=== PATIENT | male | born 1995 | race Caucasian/White ===

== ENCOUNTER 2018-01-17 17:54 | Emergency (ER) | payer OTHER ==
--- NOTE | 2018-01-17 18:12 | ER Report ---
History and Physical Time Seen By MD: 18:12 Hx. of Stated Complaint: PATIENT HAS BEEN HAVING ABDOMINAL PAIN TODAY SINCE TAKING AN IMMODIUM HPI/ROS CHIEF COMPLAINT: Abdominal pain HISTORY OF PRESENT ILLNESS: 22-year-old male patient presents to emergency room with complaint of abdominal pain. Patient states that he has been having diarrhea all week. He states that he has been taking Imodium. He states that this morning he took 2 Imodium. States that the pain started approximately noon and has continued to worsen throughout the day. Patient states that the pain is worse now. He states that it's an 8.6 out of 10. Patient states he's had some nausea and vomiting. He states that is worse after drinking. He states he's not been able to eat at all today. Patient states pain has seemed to be throughout his abdomen. States it does not stay in one location. He denies having any previous abdominal surgery. REVIEW OF SYSTEMS: Respiratory: No cough, no dyspnea. Cardiovascular: No chest pain, no palpitations. Gastrointestinal: As noted above Musculoskeletal: No back pain. Allergies: Coded Allergies: No Known Drug Allergies (Unverified , 01/17/18) Home Meds Active Scripts Hydrocodone Bit/Acetaminophen (HYDROCODON-ACETAMINOPHEN 5-325) 1 Each Tablet, 1 EACH PO Q4-6H Y for PAIN, #12 TAB Prov:DEANA RAMIREZ 01/17/18 Past Medical/Surgical History Patient has a past medical history of polycystic kidney disease. Patient denies any surgical history. Reviewed Nurses Notes: Yes Constitutional Vital Sign - Last 24 Hours 01/17/18 01/17/18 01/17/18 01/17/18 18:03 18:45 18:53 19:00 Temp 97.8 Pulse 75 88 Resp 20 B/P (MAP) 146/98 155/89 (111) 142/96 (111) Pulse Ox 96 98 93 O2 Delivery Room Air 01/17/18 01/17/18 01/17/18 01/17/18 19:15 19:30 19:45 20:00 Pulse 87 72 91 B/P (MAP) 142/96 (111) 135/87 (103) Pulse Ox 95 94 92 94 01/17/18 01/17/18 01/17/18 01/17/18 20:15 20:30 20:45 21:00 Pulse 78 93 83 94 B/P (MAP) 136/87 (103) 152/91 (111) Pulse Ox 92 91 91 97 01/17/18 01/17/18 21:15 21:25 Pulse 80 B/P (MAP) 141/84 (103) Pulse Ox 93 Physical Exam General Appearance: The patient is alert, has no immediate need for airway protection and no current signs of toxicity. ENT: Tympanic membranes are pearly-baptiste, auditory canals are patent, mucous membranes are moist. Respiratory: Chest is non tender, lungs are clear to auscultation. Cardiac: regular rate and rhythm Gastrointestinal: Abdomen is soft and non tender, no masses, bowel sounds are hypoactive. Musculoskeletal: Neck: Neck is supple and non tender. Extremities have full range of motion and are non tender. Skin: No rashes or lesions. DIFFERENTIAL DIAGNOSIS: After history and physical exam differential diagnosis was considered for abdominal pain including but not limited to appendicitis, cholecystitis, gastritis and urinary tract infection. Medical Decision Making Data Points Result Diagram: 01/17/18 1844 01/17/18 1844 Laboratory Hematology Test 01/17/18 18:00 01/17/18 18:44 Urine Color Yellow Urine Clarity Clear Urine pH 6.0 pH (4.8-9.5) Urine Specific Shunk 1.016 Urine Protein 30 mg/dL (NEGATIVE) Urine Glucose (UA) Negative mg/dL (NEGATIVE) Urine Ketones Negative mg/dL (NEGATIVE) Urine Blood Negative (NEGATIVE) Urine Nitrite Negative (NEGATIVE) Urine Bilirubin Negative (NEGATIVE) Urine Urobilinogen Negative mg/dL (0.2-1.9) Urine Leukocyte Esterase Negative (NEGATIVE) Urine RBC 1 /HPF (0-2/HPF) Urine WBC None /HPF (0-5/HPF) Urine Squamous Epithelial Cells None /LPF (</=FEW) Urine Bacteria Negative /HPF (NONE-FEW) Urine Mucus Few /HPF (NONE-FEW) Red Blood Count 5.91 M/uL (4.00-5.60) Mean Corpuscular Volume 85.5 fL (80.0-96.0) Mean Corpuscular Hemoglobin 30.9 pg (26.0-33.0) Mean Corpuscular Hemoglobin Concent 36.2 g/dL (32.0-36.0) Red Cell Distribution Width 13.0 % (11.5-14.5) Mean Platelet Volume 7.7 fL (7.2-11.1) Neutrophils (%) (Auto) 86.6 % (39.4-72.5) Lymphocytes (%) (Auto) 8.8 % (17.6-49.6) Monocytes (%) (Auto) 3.9 % (4.1-12.4) Eosinophils (%) (Auto) 0.5 % (0.4-6.7) Basophils (%) (Auto) 0.2 % (0.3-1.4) Nucleated RBC Relative Count (auto) 0.1 /100WBC Neutrophils # (Auto) 8.9 K/uL (2.0-7.4) Lymphocytes # (Auto) 0.9 K/uL (1.3-3.6) Monocytes # (Auto) 0.4 K/uL (0.3-1.0) Eosinophils # (Auto) 0.0 K/uL (0.0-0.5) Basophils # (Auto) 0.0 K/uL (0.0-0.1) Nucleated RBC Absolute Count (auto) 0.01 K/uL Sodium Level 137 mmol/L (137-145) Potassium Level 3.8 mmol/L (3.5-5.0) Chloride Level 97 mmol/L (98-107) Carbon Dioxide Level 26 mmol/L (22-30) Blood Urea Nitrogen 14 mg/dl (9-21) Creatinine 0.80 mg/dl (0.66-1.25) Glomerular Filtration Rate Calc > 60.0 Random Glucose 119 mg/dl (75-110) Calcium Level 9.6 mg/dl (8.4-10.2) Total Bilirubin 1.0 mg/dl (0.2-1.3) Aspartate Amino Transf (AST/SGOT) 31 U/L (0-35) Alanine Aminotransferase (ALT/SGPT) 26 U/L (0-56) Alkaline Phosphatase 66 U/L (0-126) C-Reactive Protein 0.5 mg/dl (<1.0) Total Protein 8.3 g/dl (6.3-8.2) Albumin 5.1 g/dl (3.5-5.0) Amylase Level 103 U/L (0-110) Lipase 25 U/L (23-300) Chemistry Test 01/17/18 18:00 01/17/18 18:44 Urine Color Yellow Urine Clarity Clear Urine pH 6.0 pH (4.8-9.5) Urine Specific Shunk 1.016 Urine Protein 30 mg/dL (NEGATIVE) Urine Glucose (UA) Negative mg/dL (NEGATIVE) Urine Ketones Negative mg/dL (NEGATIVE) Urine Blood Negative (NEGATIVE) Urine Nitrite Negative (NEGATIVE) Urine Bilirubin Negative (NEGATIVE) Urine Urobilinogen Negative mg/dL (0.2-1.9) Urine Leukocyte Esterase Negative (NEGATIVE) Urine RBC 1 /HPF (0-2/HPF) Urine WBC None /HPF (0-5/HPF) Urine Squamous Epithelial Cells None /LPF (</=FEW) Urine Bacteria Negative /HPF (NONE-FEW) Urine Mucus Few /HPF (NONE-FEW) White Blood Count 10.2 k/uL (4.5-11.0) Red Blood Count 5.91 M/uL (4.00-5.60) Hemoglobin 18.3 g/dL (14.0-18.0) Hematocrit 50.6 % (42.0-52.0) Mean Corpuscular Volume 85.5 fL (80.0-96.0) Mean Corpuscular Hemoglobin 30.9 pg (26.0-33.0) Mean Corpuscular Hemoglobin Concent 36.2 g/dL (32.0-36.0) Red Cell Distribution Width 13.0 % (11.5-14.5) Platelet Count 238 K/uL (150-450) Mean Platelet Volume 7.7 fL (7.2-11.1) Neutrophils (%) (Auto) 86.6 % (39.4-72.5) Lymphocytes (%) (Auto) 8.8 % (17.6-49.6) Monocytes (%) (Auto) 3.9 % (4.1-12.4) Eosinophils (%) (Auto) 0.5 % (0.4-6.7) Basophils (%) (Auto) 0.2 % (0.3-1.4) Nucleated RBC Relative Count (auto) 0.1 /100WBC Neutrophils # (Auto) 8.9 K/uL (2.0-7.4) Lymphocytes # (Auto) 0.9 K/uL (1.3-3.6) Monocytes # (Auto) 0.4 K/uL (0.3-1.0) Eosinophils # (Auto) 0.0 K/uL (0.0-0.5) Basophils # (Auto) 0.0 K/uL (0.0-0.1) Nucleated RBC Absolute Count (auto) 0.01 K/uL Glomerular Filtration Rate Calc > 60.0 Calcium Level 9.6 mg/dl (8.4-10.2) Total Bilirubin 1.0 mg/dl (0.2-1.3) Aspartate Amino Transf (AST/SGOT) 31 U/L (0-35) Alanine Aminotransferase (ALT/SGPT) 26 U/L (0-56) Alkaline Phosphatase 66 U/L (0-126) C-Reactive Protein 0.5 mg/dl (<1.0) Total Protein 8.3 g/dl (6.3-8.2) Albumin 5.1 g/dl (3.5-5.0) Amylase Level 103 U/L (0-110) Lipase 25 U/L (23-300) Urinalysis Test 01/17/18 18:00 Urine Color Yellow Urine Clarity Clear Urine pH 6.0 pH (4.8-9.5) Urine Specific Shunk 1.016 Urine Protein 30 mg/dL (NEGATIVE) Urine Glucose (UA) Negative mg/dL (NEGATIVE) Urine Ketones Negative mg/dL (NEGATIVE) Urine Blood Negative (NEGATIVE) Urine Nitrite Negative (NEGATIVE) Urine Bilirubin Negative (NEGATIVE) Urine Urobilinogen Negative mg/dL (0.2-1.9) Urine Leukocyte Esterase Negative (NEGATIVE) Urine RBC 1 /HPF (0-2/HPF) Urine WBC None /HPF (0-5/HPF) Urine Squamous Epithelial Cells None /LPF (</=FEW) Urine Bacteria Negative /HPF (NONE-FEW) Urine Mucus Few /HPF (NONE-FEW) EKG/Imaging Imaging COMPUTED TOMOGRAPHY ABDOMEN AND PELVIS WITH INTRAVENOUS CONTRAST DATE OF EXAM: 01/17/2018 6:25 PM INDICATION: Abdominal pain. COMPARISON: None. TECHNIQUE: Contrast enhanced abdomen and pelvis CT performed during the injection of 75 ml of Isovue 370. Sagittal and coronal reconstructions were performed. One of the following dose optimization techniques was utilized in the performance of this exam: Automated exposure control; adjustment of the mA and/or kV according to the patient's size; or use of an iterative reconstruction technique. Specific details can be referenced in the facility's radiology CT exam operational policy. FINDINGS: Lung bases: Probable 2 mm lymph node along the left major fissure H 12 series 2. No suspicious consolidation. Liver and hepatic vasculature: Normal. Gallbladder and bile ducts: Normal. Spleen: Normal. Pancreas: Normal. Adrenals: Normal. Kidneys, ureters and bladder: There are numerous bilateral renal cysts, the right kidney is mildly atrophic, and the left kidney appears enlarged. There is a very large cyst arising from the inferior pole of the right kidney measuring 15.9 x 9.1 greatest axial dimensions and extending 19.9 cm craniocaudal. It displaces adjacent bowel and partially compresses the inferior vena cava. The distal ureters appear dilated, though they do not appear inflamed and there is no well-demonstrated obstructing lesion. Urinary bladder is largely decompressed. Retroperitoneum and aorta: Normal caliber aorta. IVC is partially compressed by the large right renal cyst. GI tract, mesentery and peritoneum: Bowel is displaced by the large right renal cyst as above. No evidence of obstruction. Normal appendix. No pneumatosis, pneumoperitoneum or free fluid. Prostate and seminal vesicles: Normal. Bones and soft tissues: No acute abnormality or suspicious lesion. IMPRESSION: 1. Polycystic kidneys with very large right renal cyst displacing adjacent bowel as well as compressing the inferior vena cava. It measures 15.9 x 9.1 x 19.9 cm. 2. Nonspecific dilation of the distal portions of the ureters with no apparent obstructing lesion or acute inflammation. Correlate with urinalysis. This may be chronic, and could be further evaluated with nonemergent CT IVP if indicated. Consider urologic consultation. Report Dictated By: Gualberto Taveras MD at 01/17/2018 8:07 PM Report E-Signed By: Gualberto Taveras MD at 01/17/2018 8:19 PM ED Course/Re-evaluation ED Course Patient was admitted to an exam room, history and physical were obtained. Differential diagnoses were considered. On examination patient had no palpable tenderness to the abdomen, although he was guarding. Lungs are clear, heart was regular. A IV was started, CBC, CMP, urinalysis, CT scan of abdomen and pelvis was done. Labs were unremarkable. CRP was negative. CT scan of the abdomen and pelvis did show a large right kidney cyst. Which did cause displacement of the intestines as well as some compression of the inferior vena cava. After reviewing the images of believe that is likely the cause of his pain. Patient did receive morphine through the IV when he arrived here. He did have improvement in his pain. He says the pain is significantly improved. I did review the CT scans with the patient and his significant other. We will go ahead and discharge the patient home. Patient was given a we discussed increasing fluid intake, make sure is getting plenty of fiber in his diet. I recommended that he follow-up with urology here in [facility]. He states he preferred talk to his director information security back in [place]. I recommend that he call them on Friday and discuss the CT scans with him. I did give him the information for urologist here in [facility] so that he can follow-up with them if that his recognition of his director information security. I discussed this with the patient and significant other and they verbalized understanding and agreement with plan. Patient will be treated with a limited supply of pain medication to help with his discomfort. Decision to Disposition Date: Jan 17, 2018 Decision to Disposition Time: 21:18 Depart Departure Latest Vital Signs Vital Signs Date Time Temp Pulse Resp B/P (MAP) Pulse Ox O2 Delivery O2 Flow Rate FiO2 01/17/18 21:25 141/84 (103) 01/17/18 21:15 80 93 01/17/18 18:03 97.8 20 Room Air Impression: Primary Impression: Kidney cysts Condition: Improved Disposition: HOME OR SELF-CARE Referrals: HERLINDA PEREZ MD, LYLE MD New Scripts Hydrocodone Bit/Acetaminophen (HYDROCODON-ACETAMINOPHEN 5-325) 1 Each Tablet 1 EACH PO Q4-6H Y for PAIN, #12 TAB Prov: DEANA RAMIREZ 01/17/18 Patient Instructions: Kidney Cyst (ED) Additional Instructions: Limit activity by pain. Get plenty of rest. Follow up with your Stock Clerk, call on Friday to discuss the results of the CT scan. Increase fluid intake. Use pain medication as needed for severe pain. Return to the ER if condition worsens. Follow up with Urologist, if okay with your Stock Clerk. DEANA RAMIREZ Jan 17, 2018 18:12
[2018-01-17] MEDS ORDERED: NS(*) 0.9% 1000 ML BAG 1,000 ML IV ONE (18:25)
[2018-01-17] MEDS ORDERED: ONDANSETRON 4 MG/2 ML VIAL IVP ONE (18:40)
[2018-01-17] MEDS ORDERED: MORPHINE 4 MG/ML SDV IVP ONE (18:40)
[2018-01-17 18:54] LABS: PLATELET COUNT, AUTOMATED 238 K/uL (150-450)
[2018-01-17] MEDS ORDERED: IOPAMIDOL 76% 75 ML INFUS BTL 75 ML ONE (19:05)
--- NOTE | 2018-01-17 20:22 | RADIOLOGY IMAGING REPORT ---
FACILITY: [facility] PATIENT NAME: Ibrahima Bryson : 1995 MR: [id number] V: [id number] EXAM DATE: ORDERING PHYSICIAN: DEANA RAMIREZ TECHNOLOGIST: Location: [facility] [place] Patient: Ibrahima Bryson : 1995 Visit/Account:[id number] Date of Sevice: 01/17/2018 COMPUTED TOMOGRAPHY ABDOMEN AND PELVIS WITH INTRAVENOUS CONTRAST DATE OF EXAM: 01/17/2018 6:25 PM INDICATION: Abdominal pain. COMPARISON: None. TECHNIQUE: Contrast enhanced abdomen and pelvis CT performed during the injection of 75 ml of Isovue 370. Sagittal and coronal reconstructions were performed. One of the following dose optimization [place] was utilized in the performance of this exam: Automated exposure control; adjustment of the mA and/or kV according to the patient's size; or use of an iterative reconstruction technique. Spec [facility] details can be referenced in the facility's radiology CT exam operational policy. FINDINGS: Lung bases: Probable 2 mm lymph node along the left major fissure H 12 series 2. No suspicious conso lidation. Liver and hepatic vasculature: Normal. Gallbladder and bile ducts: Normal. Spleen: Normal. Pancreas: Normal. Adrenals: Normal. Kidneys, ureters and bladder: There are numerous bilateral renal cysts, the right kidney is mildly a trophic, and the left kidney appears enlarged. There is a very large cyst arising from the inferior pole of the right kidney measuring 15.9 x 9.1 greatest axial dimensions and extending 19.9 cm cranioc audal. It displaces adjacent bowel and partially compresses the inferior vena cava. The distal uret ers appear dilated, though they do not appear inflamed and there is no well-demonstrated obstructing lesion. Urinary bladder is largely decompressed. Retroperitoneum and aorta: Normal caliber aorta. IVC is partially compressed by the large right neha al cyst. GI tract, mesentery and peritoneum: Bowel is displaced by the large right renal cyst as above. No e vidence of obstruction. Normal appendix. No pneumatosis, pneumoperitoneum or free fluid. Prostate and seminal vesicles: Normal. Bones and soft tissues: No acute abnormality or suspicious lesion. IMPRESSION: 1. Polycystic kidneys with very large right renal cyst displacing adjacent bowel as well as compress ing the inferior vena cava. It measures 15.9 x 9.1 x 19.9 cm. 2. Nonspecific dilation of the distal portions of the ureters with no apparent obstructing lesion or acute inflammation. Correlate with urinalysis. This may be chronic, and could be further evaluated with nonemergent CT IVP if indicated. Consider urologic consultation. Report Dictated By: Gualberto Taveras MD at 01/17/2018 8:07 PM Report E-Signed By: Gualberto Taveras MD at 01/17/2018 8:19 PM WSN:[id number]
[2018-01-17] MEDS ORDERED: HYDR-385 PO (21:17)
[2018-01-17 21:25] VITALS: BP 141/84
[2018-01-17] MEDS ORDERED: ACET/HYDROC 5/325MG TH ER ONLY 2 TAB/BOTTLE PO ONE (21:25)
== END 2018-01-17 22:00 | disposition home or self-care (01) ==
LOC: ER 18:15
DX: N28.1 Cyst of kidney, acquired (principal)
CPT/HCPCS: 36415; 74177; 81001; 82150; 83690; 85025; 86140; 96361; 96374; 96375; 99284; J2270; J2405; J7030; Q9967; 82040; 82247; 82310; 82374; 82435; 82565; 82947; 84075; 84132; 84155; 84295; 84450; 84460; 84520